=== PATIENT | female | born 1975 | race Caucasian/White ===

== ENCOUNTER 2018-10-23 09:23 | Emergency (ER) | payer OTHER ==
[~2018-10-23] VITALS: Ht 152.4 cm; Wt 68.0 kg
[~2018-10-23 09:23] MED LIST: ADVAIR; ALBUTEROL; ASTEPRO; CLARITON D; FLONASE
[2018-10-23] MEDS ORDERED: GABA-531 MT (09:46)
[2018-10-23] MEDS ORDERED: OMAL150V SQ (09:46)
[2018-10-23] MEDS ORDERED: TYLENOL (09:46)
[2018-10-23] MEDS ORDERED: FLUO40CA8 MT (09:46)
[2018-10-23] MEDS ORDERED: KLONOPIN (09:46)
[2018-10-23] MEDS ORDERED: ONDANSETRON 4MG ODT PO ONE (10:45)
[2018-10-23] MEDS ORDERED: SODIUM CHLORIDE 0.9% 1,000 ML IV ONE (10:58)
[2018-10-23] MEDS ORDERED: ACETAMINOPHEN 325MG TABLET PO STA (10:58)
[2018-10-23 11:41] LABS: CLARITY URINE CLOUDY (CLEAR); COLOR URINE YELLOW (YELLOW); KETONES URINE 1+ (NEGATIVE); LEUKOCYTE ESTERASE URINE NEGATIVE (NEGATIVE); NITRITE URINE NEGATIVE (NEGATIVE); OCCULT BLOOD URINE NEGATIVE (NEGATIVE); PH URINE >=9.0 (4.5-8.0); PROTEIN URINE 2+ (NEGATIVE); SPECIFIC GRAVITY URINE 1.032 (1.005-1.030)
[2018-10-23] MEDS ORDERED: ONDANSETRON HCL 4MG/2ML INJ IV ONE (12:00)
[2018-10-23] MEDS ORDERED: GABAPENTIN 400MG CAPSULE PO ONE (12:00)
[2018-10-23 14:42] LABS: HEMATOCRIT. 37.6 % (36.0-48.0); HEMOGLOBIN. 12.7 g/dL (12.0-16.0); MEAN CORPUSCULAR HEMOGLOBIN 30.9 pg (28.0-32.0); MEAN CORPUSCULAR VOLUME 91.6 fL (81.0-99.0); MEAN PLATELET VOLUME 9.4 fl (7.4-10.4); PLATELET 257 x1000/uL (130-400); RED BLOOD CELL COUNT 4.11 mill/uL (4.2-5.4)
[2018-10-23] MEDS ORDERED: METOCLOPRAMIDE HCL 10MG/2ML VIAL IV ONE (14:45)
[2018-10-23 14:48] LABS: CHLORIDE 106 mEq/L (98-107)
[2018-10-23] MEDS ORDERED: POTASSIUM CHLORIDE 20MEQ TABLET SR PO ONE (15:30)
[2018-10-23 15:43] LABS: PLATELET ESTIMATE NORMAL
[2018-10-23] MEDS ORDERED: FENTANYL CITRATE/PF 50MCG/ML 2ML VIAL IV ONE (16:15)
[2018-10-23 18:41] VITALS: BP 110/66
[2018-10-23] MEDS ORDERED: IOHEXOL-300 100 ML BOTTLE ONE (19:55)
== END 2018-10-23 18:49 | disposition home or self-care (01) ==
LOC: ER 09:23
DX: R11.2 Nausea with vomiting, unspecified (principal); R19.7 Diarrhea, unspecified; J45.909 Unspecified asthma, uncomplicated; F32.9 Major depressive disorder, single episode, unspecified; R50.9 Fever, unspecified; R05 Cough; R09.89 Other specified symptoms and signs involving the circulatory and respiratory systems; F41.9 Anxiety disorder, unspecified; Z90.49 Acquired absence of other specified parts of digestive tract; Z98.890 Other specified postprocedural states; Z79.899 Other long term (current) drug therapy; Z88.6 Allergy status to analgesic agent
CPT/HCPCS: 36415; 71045; 74177; 80053; 81003; 81025; 83690; 85025; 93005; 96361; 96374; 96375; 99284; J2405; J2765; J3010; J7030; Q0162; Q9967